=== PATIENT | female | born 1940 | race Asian ===

== ENCOUNTER 2020-07-01 12:20 | Outpatient (CLI) | payer BC, SELFPAY ==
--- NOTE | ~2020-07-01 | XR_ITS ---
XR chest 2V DATE: 07/01/2020 13:03 INDICATION: Right knee pain TECHNIQUE: PA and lateral views COMPARISON: 03/31/2017 PA and lateral chest FINDINGS: Normal heart size. Aortic calcification. No hilar or mediastinal enlargement. There is bila teral hyperinflation. No pulmonary infiltrate or consolidation, pleural effusion or pulmonary vascula r congestion or pneumothorax. IMPRESSION: No active cardiopulmonary disease Reviewed, dictated and finalized at location B.
--- NOTE | ~2020-07-01 | XR_ITS ---
XR knee RT min 4V DATE: 07/01/2020 13:03 INDICATION: Right knee pain TECHNIQUE: 4 views COMPARISON: None FINDINGS: There is severe osteoarthritic change at the patellofemoral joint, including joint space na rrowing and spurring. Medial and lateral compartment joint spaces appear relatively preserved. There is mild particular spurring at the lateral compartment. No fracture or dislocation or any appreciable joint effusion is evident. No periosteal reaction or shayla ne destruction. Moderate osteopenia. 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
== END 2020-07-01 12:21 | disposition home or self-care (01) ==
LOC: CHSLAB 12:24
PROVIDERS: PCP Internal Medicine; Visit Provider Internal Medicine
DX: R06.00 Dyspnea, unspecified (principal); M25.561 Pain in right knee
CPT/HCPCS: 71046; 73564

== ENCOUNTER 2020-08-29 14:28 | Outpatient (CLI) | payer BC, SELFPAY ==
[2020-08-30 13:45] LABS: SARS-CoV-2 RNA PCR Negative
== END 2020-08-29 14:29 | disposition home or self-care (01) ==
LOC: CHSLAB 14:29
PROVIDERS: PCP Internal Medicine; Visit Provider Internal Medicine
DX: Z20.828 Contact with and (suspected) exposure to other viral communicable diseases (principal)
CPT/HCPCS: 87635; C9803; U0003

== ENCOUNTER 2020-09-27 10:26 | Emergency (ER) | payer BC, SELFPAY ==
--- NOTE | ~2020-09-27 | XR_ITS ---
EXAMINATION: XR thoracic spine 2V DATE: 09/27/2020 11:20 INDICATION: Back pain TECHNIQUE: Two views of the thoracic spine are obtained. COMPARISON: 01/25/2018 FINDINGS: There is no fracture, dislocation, or subluxation. The vertebral body heights are normal. T here is mild loss of intervertebral disc space height throughout the thoracic spine. Small degenerati ve osteophytes project from the anterior endplates of multiple vertebral bodies. IMPRESSION: 1. Mild thoracic spondylosis without acute findings or significant interval change. Reviewed, dictated and finalized at location A. IMPRESSION: 1. Mild thoracic spondylosis without acute findings or significant interval davon nge.
--- NOTE | ~2020-09-27 | XR_ITS ---
EXAMINATION: XR lumbar spine 2-3V DATE: 09/27/2020 11:20 INDICATION: Low back pain TECHNIQUE: Two views of the lumbar spine were obtained. COMPARISON: None. FINDINGS: There is no fracture. There are 3 mm of anterolisthesis of L5 on S1 with mild loss of inter vertebral disc space height at L5-S1. Small degenerative osteophytes project from the anterior endpla leonard of multiple vertebral bodies. There is mild facet osteoarthritis of the lower lumbar spine. Calci fied atherosclerosis is noted. The bowel gas pattern is normal. IMPRESSION: 1. Mild lumbar spondylosis without acute findings. Reviewed, dictated and finalized at location A.
--- NOTE | ~2020-09-27 | XR_ITS ---
EXAMINATION: XR chest 1V portable INDICATION: Cough, COVID positive TECHNIQUE: Portable AP chest at 1104 hours COMPARISON: 07/01/2020 FINDINGS: There are minimal airspace opacities of the lung bases. No pleural effusion or pneumothorax is identified. The cardiomediastinal silhouette is normal. IMPRESSION: 1. Minimal airspace opacities of the lung bases, consistent with atelectasis versus pneumonia. Reviewed, dictated and finalized at location A. IMPRESSION: 1. Minimal airspace opacities of the lung bases, consistent with atelectasis ve rsus pneumonia.
--- NOTE | ~2020-09-27 | CT_ITS ---
EXAMINATION: CT brain wo con INDICATION: Transient alteration of awareness COMPARISON: None TECHNIQUE: Standard unenhanced head CT. The dose-length product (DLP) was 605.33 mGy-cm. The mA was a djusted according to patient size. Iterative reconstruction technique was employed. FINDINGS: There is no acute intraparenchymal hemorrhage. No evidence of mass lesion. No evidence of a cute infarction. There is mild periventricular and subcortical hypodensity probably related to small vessel ischemic disease. There is mild prominence of the sulci and ventricles related to cerebral atr ophy. Intracranial calcified cerebral atherosclerosis is noted. There are no extra-axial collections. There is no mass effect or midline shift. Changes in the globes are likely from ocular lens surgery. There is mild mucosal thickening of the paranasal sinuses. IMPRESSION: 1. No acute intracranial abnormality. 2. Age related findings. Reviewed, dictated and finalized at location A.
[2020-09-27 10:36] VITALS: BP 99/58; PULSE 68; RESP 23; TEMP 36.4; O2SAT 95
--- NOTE | 2020-09-27 10:48 | ECG_ITS ---
Measurements Intervals [place] Rate: 69 P: 69 AL: 121 QRS: 59 QRSD: 85 T: 80 QT: 400 QTc: 431 Interpretive Statements SINUS RHYTHM BORDERLINE T WAVE ABNORMALITY- HIGH LATERAL LEADS BORDERLINE ECG Electronically Signed On 09-27-2020 13:50:20 CDT by Lan Sweet D.O.
--- NOTE | 2020-09-27 10:54 | ED.GENADULT ---
HPI - General Adult General Chief complaint: Syncope Stated complaint: syncopal episode/covid + Time Seen by Provider: 09/27/20 10:36 Source: patient and family History of Present Illness HPI narrative: Patient is a 80 y/o female brought in by family for syncopal episode this morning. Patient lives with her son, who is a physician and also her PCP. He states that patient was walking out of bathroom this morning, got wobbly and he caught her before she fell down. He states that this lasted about 1 minute. He states that she has been having cough for about 10 days. He gave her Z-pack, which did not help. He states that she tested positive for COVID in the office 2 days ago. She passed out 2 days ago also. She also complains of some back pain. She has no chest pain, abdominal pain, vomiting or focal weakness. Related Data Home Medications Medication Instructions Recorded Confirmed clopidogrel 09/27/20 dapagliflozin [Farxiga] mg 09/27/20 furosemide 09/27/20 glimepiride mg 09/27/20 levothyroxine 09/27/20 simvastatin mg 09/27/20 spironolactone 09/27/20 telmisartan mg 09/27/20 Allergies Allergy/AdvReac Type Severity Reaction Status Date / Time Penicillins Allergy Severe RASH Verified 09/27/20 11:34 Review of Systems Constitutional: Constitutional: Denies chills, Reports fever(s), Denies headache(s) and Denies weakness Eyes: Eyes: Denies blurry vision ENT: Denies headache(s) and Denies neck pain Cardiovascular: Cardiovascular: Denies chest pain and Reports dyspnea Respiratory: Respiratory: Reports cough and Reports dyspnea Gastrointestinal: Gastrointestinal: Denies abdominal pain, Denies diarrhea, Denies nausea and Denies vomiting Genitourinary: Genitourinary: Denies hematuria and Denies dysuria Musculoskeletal: Musculoskeletal: Reports back pain and Denies neck pain Neurologic: Reports syncope, Denies headache(s) and Denies weakness [facility] Social History Social History Gender identity (if verbalized by the patient): Female Exam Const: General: no acute distress and well developed Orientation/consciousness: oriented to person, oriented to place, oriented to time and patient oriented x3 HENMT: Head: normocephalic Ears: external ears normal General nose exam: Normal external nose present Eyes: General: appearance normal, both eyes and all related structures Conjunctivae: conjunctivae normal Neck: Neck: normal visual inspection and full ROM Chest: Chest palpation & inspection: normal inspection of the chest and no tenderness Resp: Effort & Inspection: normal respiratory effort Auscultation: clear to auscultation bilaterally Cardio: Rate: regular rate Rhythm: regular rhythm GI: GI Palp: No abdominal tenderness and Yes Soft to palpation Skin: General skin exam: normal color and turgor normal Neuro: General: oriented to person, oriented to place, oriented to time and patient oriented x3 Cranial nerves: Yes CN's II-XII intact bilaterally Cognition (Neuro): normal cognition Speech: normal speech Motor exam (neuro): 5/5 motor strength present throughout Sensory Exam: normal sensation Coordination: [id number] test normal and [id number] test normal Extrem: General: normal to inspection, full ROM and no pedal edema Psych: Appearance: grossly normal Mental Status: mental status grossly normal Affect: normal affect Course Vital Signs Vital signs: Vital Signs Temperature 36.4 C 09/27/20 10:36 Pulse Rate 68 09/27/20 10:36 Respiratory Rate 23 H 09/27/20 10:36 Blood Pressure 99/58 L 09/27/20 10:36 Pulse Oximetry 95 09/27/20 10:36 Temperature 36.4 C 09/27/20 10:36 Pulse Rate 69 09/27/20 13:39 Respiratory Rate 18 09/27/20 13:39 Blood Pressure 145/78 H 09/27/20 13:39 Pulse Oximetry 96 09/27/20 13:39 Medical Decision Making Vital Signs Vital Signs: Vital Signs Temperature 36.4 C 09/27/20
[2020-09-27 11:22] VITALS: BP 122/62; PULSE 70; RESP 18; O2SAT 93
[2020-09-27] MEDS: SODIUM CHLORIDE 0.9% IV 1,000 ML 999 ML IV CONT (11:22)
[2020-09-27 11:33] LABS: Basophils Percent Auto 0.3 % (0.2-1.2); Eosinophils Percent Auto 0.1 % (0-4.4); Hematocrit 39.7 % (37.0-47.0); Hemoglobin 13.2 g/dL (12.0-15.0); Immature Granulocyte Absolute 0.05 K/mm3 (0.00-0.031); Immature Granulocyte Percent A 0.7 % (0-0.5); Immature Platelet Fraction Pct 7.5 % (0.9-11.2); Lymphocytes Absolute Auto 0.88 K/mm3 (0.9-3.2); Lymphocytes Percent Auto 11.7 % (18.3-44.2); Mean Corpuscular HGB Conc 33.2 g/dl (32-36); Mean Corpuscular Hemoglobin 29.9 pg (26-34); Mean Corpuscular Volume 89.8 fl (80-100); Monocytes Absolute Auto 0.6 K/mm3 (0.1-0.6); Monocytes Percent Auto 8.3 % (2.6-8.5); Neutrophils Absolute Auto 5.9 K/mm3 (1.3-6.7); Neutrophils Percent Auto 78.9 % (45.5-73.1); Platelet Count Result 148 k/mm3 (150-375); Red Blood Count 4.42 M/mm3 (4.2-5.4); Red Cell Distribution Width 13.2 % (11.5-14.5); White Blood Count 7.5 K/mm3 (4.5-10.0)
[2020-09-27 12:25] VITALS: BP 118/84; PULSE 70; RESP 18; O2SAT 96
[2020-09-27 12:34] LABS: Alanine Aminotransferase 25 U/L (4-35); Albumin Level 3.5 g/dL (3.5-5.1); Alkaline Phosphatase 92 U/L (38-126); Anion Gap 9 mmol/L (8-16); Aspartate Amino Transferase 38 U/L (14-36); Bilirubin,Total 0.3 mg/dL (0.2-1.3); Blood Urea Nitrogen 14 mg/dL (7-17); Calcium 8.2 mg/dL (8.4-10.2); Carbon Dioxide 24 mmol/L (22-30); Chloride 103 mmol/L (98-107); Estimated CRCL calculation 50 ml/min; Estimated Glomerular Filt Rate > 60; Glucose 200 mg/dL (65-105); Potassium 4.1 mmol/L (3.4-5.0); Sodium 136 mmol/L (137-145)
[2020-09-27 12:46] LABS: NT Pro B Type Natriuretic Pept 559 PG/ML (5-100); Troponin I < 0.012 ng/mL (0.000-0.034)
[2020-09-27 13:39] VITALS: BP 145/78; PULSE 69; RESP 18; O2SAT 96
[2020-09-27 14:37] LABS: Add Urine Microscopic? YES; Appearance Urine Clear (Clear); Bilirubin Urine Negative (Negative); Blood Urine Negative (Negative); Color Urine Yellow (Yellow); Glucose Urine UA 3+ mg/dL (Negative); Ketones Urine 1+ mg/dL (Negative); Leukocyte Esterase Ur Negative LEU/UL (Negative); Mucus Urine Rare /lpf; Nitrate Urine Negative (Negative); Protein Urine Negative (Negative); RBC Urine 0-2 /hpf (0-2); Specific Grav Ur 1.029 (1.001-1.035); Squamous Epithelial Cell Urine Rare /hpf (Few); Urobilinogen Urine Negative mg/dL (<2.0); WBC Urine 0-3 /hpf
== END 2020-09-27 15:14 | disposition home or self-care (01) ==
PROVIDERS: Emergency Provider Emergency Medicine; PCP Internal Medicine
DX: U07.1 COVID-19 (principal); R55 Syncope and collapse; R94.31 Abnormal electrocardiogram [ECG] [EKG]; R06.00 Dyspnea, unspecified
CPT/HCPCS: 36415; 70450; 71045; 72070; 72100; 80053; 81001; 83880; 84484; 85025; 85055; 93005; 96360; 99284; J7030

== ENCOUNTER 2025-05-30 09:21 | Outpatient (CLI) | payer MEDICARE, SELFPAY ==
--- NOTE | ~2025-05-30 | XR_ITS ---
XR hip BI wo pelvis Ordering provider: Jerel Gee MD History: . right knee pain/gait difficulty . Comparison: None. FINDINGS: BONES: No acute fracture or dislocation. HIP JOINT SPACES: Bilateral mild osteoarthritic changes. SACROILIAC JOINT SPACES/LUMBAR SPINE: The sacroiliac joint spaces are normal. Mild degenerative austin es of the visualized lower lumbar spine. PUBIC SYMPHYSIS: Pubic symphysitis. SOFT TISSUES: Normal. IMPRESSION: No acute osseous abnormality of the bilateral hips and pelvis. Bilateral hip mild osteoarthritic changes. Reviewed, dictated and finalized at location A.
--- NOTE | ~2025-05-30 | XR_ITS ---
3 VIEWS LUMBAR SPINE Ordering provider: Jerel Gee MD History: . right knee pain/gait difficulty . Comparison: September 27, 2020 FINDINGS: VERTEBRAL BODIES: No visible fracture or subluxation. DISK SPACES: Slight narrowing of the disc L5-S1. SOFT TISSUES: Atherosclerotic changes of the aorta. IMPRESSION: No acute osseous abnormality lumbar spine. Reviewed, dictated and finalized at location A.
--- NOTE | ~2025-05-30 | XR_ITS ---
XR knee RT 3V Ordering provider: Jerel Gee MD History: . right knee pain/gait difficulty . Comparison: July 01, 2020 FINDINGS: BONES: No acute fracture or dislocation. JOINT SPACES: Severe narrowing of the patellofemoral joint. Marginal osteophytes seen in the knee and patella. SOFT TISSUES: Normal. IMPRESSION: No acute osseous abnormality right knee. Osteoarthritic changes of the patellofemoral joint. Reviewed, dictated and finalized at location A.
--- OUTSIDE RECORDS SUMMARY | 2025-05-30 09:29 | XMS_ITS | Clinical Summary ---
Author Organization [facility] [address] Address [address] [place] [address] Care Team Providers Care Hat Cone Inspector Name Role Phone Gerard, Jerel Primary Care Provider [phone] Allergies Active Allergy Reactions Criticality Noted Date Comments Penicillins Unknown 11/13/2018 Medications metFORMIN XR (GLUCOPHAGE XR) 500 mg 24 hr tablet Take 1,000 mg by mouth nightly. Active clopidogrel (PLAVIX) 75 mg tablet Take 75 mg by mouth daily. 0 10/01/2018 Active escitalopram (LEXAPRO) 5 mg tablet Take 5 mg by mouth daily. 5 08/25/2018 Active hydroCHLOROthiaz madeleine (HYDRODIURIL) 25 mg tablet Take 25 mg by mouth every other day. 0 10/01/2018 Active losartan (COZAAR) 50 mg tablet Take 50 mg by mouth daily. 0 10/01/2018 Active simvastatin (ZOCOR) 20 mg tablet Take 20 mg by mouth nightly. 0 10/01/2018 Active spironolactone (ALDACTONE) 25 mg tablet Take 25 mg by mouth every other day. 0 10/01/2018 Active LORazepam (ATIVAN) 0.5 mg tablet Take 0.5 mg by mouth nightly. Active trifluoperazine (STELAZINE) 1 mg tablet Take 1 mg by mouth nightly. Active levothyroxine sodium (TIROSINT) 100 mcg capsule Take 100 mcg by mouth daily. Active vitamin E (AQUASOL E) 200 unit capsule Take 200 Units by mouth daily. Active multivitamin/iro n/folic acid (CENTRUM COMPLETE ORAL) Take 1 tablet by mouth daily. Active Active Problems Problem Noted Date Diagnosed Date PLEITEZ (dyspnea on exertion) 11/13/2018 Pulmonary hypertension 11/13/2018 Excessive daytime sleepiness 11/13/2018 Other sleep apnea 11/13/2018 Benign essential HTN 11/13/2018 Mixed diabetic hyperlipidemi a associated with type 2 diabetes mellitus 11/13/2018 Bilateral thoracic back pain 11/13/2018 History of stroke 11/13/2018 Family history of ischemic heart disease 018 Hypertension 11/13/2018 Chronic diastolic CHF (congestive heart failure) 11/13/2018 PVC's (premature ventricular contractions) 11/13 Resolved Problems Problem Noted Date Diagnosed Date Resolved Date Mixed hyperlipidemia 11/13/2018 018 Medical History Medical History Date Comments Hypertension Heart failure (HCC) Thyroid disease Diabetes mellitus (HCC) Hyperlipidemia Stroke (HCC) Cataracts, both eyes Arthritis Family History Medical History Relation Name Comments Heart failure Brother Lung cancer Father Heart failure Mother Heart attack Sister heart bypass Sister Relation Name Status Comments Brother Father Mother Sister Alive Social History Tobacco Use Types Packs/Day Years Used Date Smoking Tobacco: Never Smokeless Tobacco: Never Tobacco Cessation:Counseling Given: Yes Personal Safety Answer Date Recorded Getting School Help Needed Not on file 02/11 Comments Unknown Sex and Gender Information Value Date Recorded Sex Assigned at Not on file Legal Sex Female 7:21 AM LEARNING MANAGER Gender Identity Not on file Sexual Orientation Not on file Obstetrics History Last Filed Vital Signs Vital Sign Reading Time Taken Comments Blood Pressure 112/70 11/13/2018 9:51 AM LEARNING MANAGER Pulse 73 11/13/2018 9:51 AM LEARNING MANAGER Temperature - - Respiratory Rate - - Oxygen Saturation 99% 11/13/2018 9:51 AM LEARNING MANAGER Inhaled Oxygen Concentration - - Weight 73 kg (161 lb) 11/13/2018 9:51 AM LEARNING MANAGER Height 162.6 cm (5' 4) 11/13/2018 9:51 AM LEARNING MANAGER Body Mass Index 27.64 11/13/2018 9:51 AM LEARNING MANAGER Plan of Treatment Not on file Insurance [employer] [place] [address] [phone] Care Teams Hat Cone Inspector Relationship Specialty Start Date End Date Jerel Gee MD PCP - General Internal Medicine 11/02/18
--- OUTSIDE RECORDS SUMMARY | 2025-05-30 09:29 | XMS_ITS | Referral Summary ---
Author Organization [facility] [address] Address [address] [place] [address] Care Team Providers Care Project Manager Finance Name Role Phone Ángel Geeish Primary Care Provider [phone] Allergies Active Allergy Reactions Criticality Noted Date [...] Date Resolved Date Mixed hyperlipidemia 11/13/2018 018 Social History Tobacco Use Types Packs/Day Years Used Date Smoking Tobacco: Never Smokeless Tobacco: Never Tobacco Cessation:Counseling Given: Yes Personal Safety Answer Date Recorded Getting School Help Needed Not on file 02/11 Comments Unknown Sex and Gender Information Value Date Recorded Sex Assigned at Not on file Legal Sex Female 7:21 AM TRAILHEAD CONSTRUCTION WORKER Gender Identity Not on file Sexual Orientation Not on file Last Filed Vital Signs Vital Sign Reading Time Taken Comments Blood Pressure 112/70 11/13/2018 9:51 AM TRAILHEAD CONSTRUCTION WORKER Pulse 73 11/13/2018 9:51 AM TRAILHEAD CONSTRUCTION WORKER Temperature - - Respiratory Rate - - Oxygen Saturation 99% 11/13/2018 9:51 AM TRAILHEAD CONSTRUCTION WORKER Inhaled Oxygen Concentration - - Weight 73 kg (161 lb) 11/13/2018 9:51 AM TRAILHEAD CONSTRUCTION WORKER Height 162.6 cm (5' 4) 11/13/2018 9:51 AM TRAILHEAD CONSTRUCTION WORKER Body Mass Index 27.64 11/13/2018 9:51 AM TRAILHEAD CONSTRUCTION WORKER Plan of Treatment Not on file Insurance [employer] [place] [place] [address] [phone] Care Teams Project Manager Finance Relationship Specialty Start Date End Date Jerel Gee MD PCP - General Internal Medicine 11/02/18
== END 2025-05-30 09:22 | disposition home or self-care (01) ==
LOC: CHSIMG 09:27
PROVIDERS: PCP Internal Medicine; Visit Provider Internal Medicine
DX: R26.9 Unspecified abnormalities of gait and mobility (principal); M25.561 Pain in right knee; M16.0 Bilateral primary osteoarthritis of hip; M17.11 Unilateral primary osteoarthritis, right knee
CPT/HCPCS: 72100; 73521; 73562